=== PATIENT | male | born 1945 | race Caucasian/White ===

== ENCOUNTER → 2017-03-25 | Day surgery (SDC) | payer MEDICARE, BC ==
[~2017-03-25] MED LIST: ADVA500A INH; BENA1TAB44 PO; LIDOCAINE HCL 1% PF 30 ML VIAL INFIL ONE; PROPOFOL 200 MG/20 ML AMP IV ONE; Q-PA500T3 PO; SODIUM CHLORIDE 0.9% 10 ML VIAL ONE; SPIRCAP INH; TAMS5CAP PO; TRIAMCINOLONE ACETONIDE 40 MG/ML VIAL NERV BLOCK ONE; VENTAER INH; methylPREDNISolone ACETATE 80 MG/ML VIAL ONE
--- NOTE | 2017-03-27 10:49 | M6 ---
cc: Adam PINEDA DATE 03/25/2017 DATE OF 1945 PROCEDURE Fluoroscopically guided L5-S1 translaminar epidural steroid injection. PROCEDURE NOTE History and physical was completed and signed. Consent was signed. Procedure site was marked. Medications were listed and reconciled. Pain score was recorded. Allergies were noted. Time out was taken. Fluoroscopy time was recorded where applicable. Sedation was administered or directed by Dr. Pineda. The patient was given oxygen. The patient was monitored by a registered nurse. Total procedure time was greater than 15 minutes. IV was started, blood pressure cuff, pulse oximeter and EKG were applied. The patient was placed in the prone position on a Joaquin table sedated with small amounts of propofol titrated to effect. Vital signs were monitored and remained stable throughout the procedure. The lumbar area was prepped with alcohol and 10% Betadine solution and draped with sterile drapes. Fluoroscopy was used to visualize the L5-S1 interlaminar space. The skin was infiltrated with 1% Xylocaine using a 27 gauge needle. Then a 3-1/2-inch 18-gauge Renner needle was advanced using fluoroscopic guidance and the [id number]-wuojeudbth technique into the epidural space at L5-S1 slightly to the right of the midline. There was negative aspiration for blood or any other type of fluid and at that location, the patient was given 10 mL of half percent Xylocaine, 80 mg of Depo-Medrol. Following this, the patient was taken to the recovery room with stable vital signs neurologically intact. MD RAMON Tovar/JANUSZ /10:07 AM /10:38 AM
== END | disposition home or self-care (01) ==
LOC: PHSDC 08:08
PROVIDERS: ATTEND Pain Medicine Interventional Pain Medicine
DX: M54.5 Low back pain (principal); M79.661 Pain in right lower leg
CPT/HCPCS: 62323; 99152; J1040; J3301